=== PATIENT | male | born 1975 | race Asian ===

== ENCOUNTER 2017-01-31 00:01 | Inpatient (IN) | payer BC ==
[~2017-01-31] VITALS: Ht 180.3 cm; Wt 75.0 kg
[2017-01-31 01:07] LABS: BASOPHIL % 0.1 % (0-2); PLATELET COUNT 245 x10^3mcL (130-400); RED CELL DISTRIBUTION WIDTH 12.5 % (11.5-14.5)
[2017-01-31 01:19] LABS: CALCIUM 8.8 mg/dL (8.5-10.1); CHLORIDE SERUM 103 mmol/L (98-107); CREATININE SERUM 1.2 mg/dL (0.7-1.3); GFR1 > 60 mL/min; GLUCOSE SERUM 138 mg/dL (74-106); POTASSIUM SERUM 3.5 mmol/L (3.5-5.1); SODIUM SERUM 138 mmol/L (136-145)
[2017-01-31 01:24] LABS: ALKALINE PHOSPHATASE 72 U/L (46-116); ALT/SGPT 43 U/L (16-63); AST/SGOT 24 U/L (15-37); BILIRUBIN TOTAL 0.7 mg/dL (0.20-1.00); TOTAL PROTEIN, SERUM 7.5 g/dL (6.4-8.2); URIC ACID 7.7 mg/dL (3.5-7.2)
[2017-01-31 03:49] VITALS: BP 105/68
[2017-01-31 03:57] LABS: PHOSPHOROUS 3.8 mg/dL (2.5-4.9)
[2017-01-31 03:58] LABS: CHOLESTEROL/HDL RATIO 4.3
[2017-01-31 04:00] LABS: FREE T4 1.34 ng/dL (0.76-1.46); FREE THYROXINE INDEX 3.4 ug/dL (1.4-4.5); T4(THYROXINE) 9.4 ug/dL (4.7-13.3)
[2017-01-31 04:21] LABS: T3 TOTAL 0.99 ng/mL
[2017-01-31 05:38] LABS: microscopic required? YES; urine erythrocyte 3+ (NEGATIVE)
[2017-01-31 05:48] LABS: AMPHETAMINE QUAL UR NONE DETECTED (NEG <=1000)
[2017-01-31 07:45] VITALS: BP 99/65
[2017-01-31 10:47] VITALS: BP 97/56
[2017-01-31 17:59] VITALS: BP 96/50
[2017-01-31 21:27] VITALS: BP 116/66
[2017-02-01 05:23] VITALS: BP 101/62
[2017-02-01 06:44] LABS: BASOPHIL % 0.4 % (0-2); PLATELET COUNT 202 x10^3mcL (130-400); RED CELL DISTRIBUTION WIDTH 12.7 % (11.5-14.5)
[2017-02-01 07:12] LABS: CARBON DIOXIDE 24.7 mmol/L (21-32); CHLORIDE SERUM 109 mmol/L (98-107); CREATININE SERUM 0.9 mg/dL (0.7-1.3); GFR1 > 60 mL/min; GLUCOSE SERUM 88 mg/dL (74-106); MAGNESIUM 2.1 mg/dL (1.8-2.4); PHOSPHOROUS 3.5 mg/dL (2.5-4.9); POTASSIUM SERUM 3.7 mmol/L (3.5-5.1); SODIUM SERUM 143 mmol/L (136-145)
[2017-02-01] MEDS ORDERED: FLO4 PO (09:26)
[2017-02-01] MEDS ORDERED: ACETAMINOPHEN-H1 TA1 PO (09:27)
[2017-02-01] MEDS ORDERED: COLACE100 MG PO (09:27)
[2017-02-01 11:25] VITALS: BP 101/62
[2017-02-01 11:44] VITALS: BP 112/68
== END 2017-02-01 13:20 | disposition home or self-care (01) | DRG 694 ==
LOC: ED 00:01 → MU 02:44 → DU 02:44 → MU 10:43
PROVIDERS: Emergency Medicine; ADMIT Family Medicine
DX: N13.2 Hydronephrosis with renal and ureteral calculous obstruction (principal); E78.5 Hyperlipidemia, unspecified; Z87.442 Personal history of urinary calculi; Z68.22 Body mass index [BMI] 22.0-22.9, adult; F17.210 Nicotine dependence, cigarettes, uncomplicated
CPT/HCPCS: 83880; 84439; 99406; J1885; J2270; J2405; J7030